=== PATIENT | female | born 2000 | race Caucasian/White ===

== ENCOUNTER 2021-07-07 13:34 | Emergency (ER) | payer MEDICAID ==
[~2021-07-07] VITALS: Ht 165.1 cm; Wt 61.0 kg
[2021-07-07 14:08] VITALS: BP 109/70
[2021-07-07 15:36] LABS: BASOPHILS % 0.4 % (0.0-2.0); EOSINOPHILS % 1.4 % (0.0-5.0); HEMATOCRIT. 39.7 % (36.0-48.0); HEMOGLOBIN. 13.7 g/dL (12.0-16.0); MEAN CORPUSCULAR HEMOGLOBIN 30.1 pg (28.0-32.0); MEAN CORPUSCULAR VOLUME 87.2 fL (81.0-99.0); MEAN PLATELET VOLUME 7.3 fl (7.4-10.4); NEUTROPHILS % 77.2 % (40.0-76.0); PLATELET 346 x1000/uL (130-400); RED BLOOD CELL COUNT 4.55 mill/uL (4.2-5.4); RED CELL DISTRIBUTION WIDTH 13.1 % (11.6-14.6)
[2021-07-07 15:43] LABS: HCG SCREEN POSITIVE
[2021-07-07] MEDS ORDERED: ONDANSETRON HCL 4MG/2ML INJ IV STA (15:46)
[2021-07-07 15:47] LABS: CHLORIDE 105 mEq/L (98-107)
[2021-07-07 15:53] LABS: ETHANOL BLOOD < 10 mg/dL
[2021-07-07] MEDS ORDERED: SODIUM CHLORIDE 0.9% 1,000 ML IV ONE (16:00)
[2021-07-07] MEDS ORDERED: ONDANSETRON HCL 4MG/2ML INJ IV NR (17:30)
[2021-07-07] MEDS ORDERED: PY25 MT (19:51)
== END 2021-07-07 20:57 | disposition home or self-care (01) ==
LOC: ER 13:34
DX: O21.0 Mild hyperemesis gravidarum (principal); Z3A.09 9 weeks gestation of pregnancy
CPT/HCPCS: 36415; 76801; 80053; 80320; 83690; 84702; 84703; 85025; 96361; 96374; 99284; J2405; J7030; G0480

== ENCOUNTER 2021-12-18 18:50 | Observation (INO) | payer MEDICAID ==
[~2021-12-18] VITALS: Ht 165.1 cm; Wt 74.8 kg
[~2021-12-18 18:50] MED LIST: PY25 MT
[2021-12-18] MEDS ORDERED: ACET-2708 MT (20:33)
== END 2021-12-18 21:00 | disposition home or self-care (01) ==
LOC: 8 EST LDRP 18:50
PROVIDERS: ADMIT Specialist; ATTEND Specialist
DX: O26.893 Other specified pregnancy related conditions, third trimester (principal); R10.9 Unspecified abdominal pain; O62.9 Abnormality of forces of labor, unspecified; O99.891 Other specified diseases and conditions complicating pregnancy; M54.9 Dorsalgia, unspecified; Z3A.35 35 weeks gestation of pregnancy
CPT/HCPCS: 59025; G0378; 99281; G0379

== ENCOUNTER 2022-01-12 18:02 | Observation (INO) | payer MEDICAID ==
[~2022-01-12] VITALS: Ht 165.1 cm; Wt 78.0 kg
[~2022-01-12 18:02] MED LIST changes: +ACET-2708 MT; -PY25 MT
[2022-01-12] MEDS ORDERED: LACTATED RINGERS 1,000 ML IV ONE (20:15)
[2022-01-12] MEDS ORDERED: LACTATED RINGERS 1,000 ML IV SCH (20:15)
[2022-01-12] MEDS ORDERED: PNV11TAB5 PO (20:20)
== END 2022-01-12 21:20 | disposition home or self-care (01) ==
LOC: 8 EST LDRP 18:02
PROVIDERS: ADMIT Specialist; ATTEND Specialist
DX: O62.9 Abnormality of forces of labor, unspecified (principal); Z3A.36 36 weeks gestation of pregnancy
CPT/HCPCS: 59025; G0378; 99281